=== PATIENT | male | born 1985 | race Caucasian/White ===

== ENCOUNTER → 2016-12-07 | Day surgery (SDC) | payer BC ==
[~2016-12-07] MED LIST: NO MEDICATIONS
--- NOTE | ~2016-12-07 | OR ---
Unit #: [id number] #: [id number] Patient: LEATHA CELIS [id number] [address] [place], [place] [address] [id number] MR#: [id number] NAME: LEATHA CELIS ROOM: Date of Procedure: 12/07/2016 Admission Date: 12/07/2016 Surgeon: Tavares Allison Jr., M.D. : 1985 Attending Physician: Tavares Allison Jr., M.D. Referring Physician: Tavares Allison Jr., M.D. Primary Care Physician: Primary Care Physician No OPERATIVE REPORT INDICATIONS FOR PROCEDURE The patient is a 31-year-old white male, recently presented to the office complaining of multiple Pilar cysts of the scalp. It has been enlarging in size and causing intermittent discomfort. He is brought in this time for excision of these under local anesthesia. There are 4 larger ones as compared to the small and it was felt that the 4 larger wounds should be removed, once of the frontal scalp, the other 3 of the temporal occipital scalp. ANESTHESIA 1% Xylocaine with epinephrine locally. PROCEDURE PERFORMED Excision of Pilar cyst of the scalp x4. DESCRIPTION OF PROCEDURE The patient was positioned in supine position. After being prepped and draped in routine fashion, he was anesthetized locally in the area of the larger cyst, which was approximately 2 cm on the frontal scalp that was anesthetized with 1% Xylocaine with epinephrine locally and elliptical incision made around the cyst being totally excised from the surrounding tissue and down to the deeper tissue near the periosteum. After it was removed, hemostasis achieved with Bovie cautery. The skin edges were approximated with interrupted 2-0 nylon sutures. He was then placed in right lateral decubitus position, prepped and draped in routine fashion for removal of the additional 3 cyst. All 3 were anesthetized locally with 1% Xylocaine with epinephrine. Elliptical incisions were made around these with it being totally excised from the surrounding tissue. After they were completely removed, the wounds were likewise closed with simple interrupted 2-0 nylon sutures. Ointment was applied in all the wounds. Estimated blood loss for all 4 cyst less than 20 mL. The patient received no IV fluids during the procedure. Sponges and instrument counts were correct x3. No drains used. No complications. The patient was taken to the recovery room with stable vital signs in satisfactory condition. Dictated by... Tavares Allison Jr., MJean Paul. TOBY/colin Unit #: [id number] #: [id number] Patient: LEATHA CELIS TD: 12/07/2016 14:26 JOB #: [id number] OPERATIVE REPORT Page 1 of 1 X Tavares Allison MD X PROCEDURE OPERATIVE NOTE
== END | disposition home or self-care (01) ==
LOC: CSUR 11-23 09:00
DX: L72.12 Trichodermal cyst (principal); Z79.899 Other long term (current) drug therapy
CPT/HCPCS: 88304